=== PATIENT | male | born 1945 | race Caucasian/White ===

== ENCOUNTER 2018-04-16 20:58 | Emergency (ER) | payer OTHER, MEDICARE ==
[~2018-04-16] VITALS: Ht 185.4 cm; Wt 79.4 kg
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
[2018-04-16 21:53] LABS: BASO % 0 % (0-3); EOS # 0.2 x10^3/uL (0.0-0.7); EOS % 3 % (0-3); HEMATOCRIT 36.6 % (39.0-53.0); HEMOGLOBIN 12.6 g/dL (13.0-17.5); LYMPH # 2.6 x10^3/uL (1.0-4.8); LYMPH % 34 % (24-48); MEAN CORPUSCULAR HEMOGLOBIN 33 pg (25-35); MEAN CORPUSCULAR HGB CONC 35 g/dL (31-37); MEAN CORPUSCULAR VOLUME 97 fL (79-100); MONO # 0.6 x10^3/uL (0.0-1.1); MONO % 8 % (0-9); NEUT # 4.1 x10^3uL (1.8-7.7); NEUT % 55 % (31-73); PLATELET COUNT 263 x10^3/uL (140-400); RED BLOOD COUNT 3.78 x10^6/uL (4.30-5.70); RED CELL DISTRIBUTION WIDTH 13.4 % (11.5-14.5); WHITE BLOOD COUNT 7.6 x10^3/uL (4.0-11.0)
--- NOTE | 2018-04-16 21:55 | EKG ---
[address] [address] Test Date: 2018-04-16 Test Time: 21:51:30 Pat Name: ANGELIQUE AVELAR Department: Room: Gender: M Reading Coach: ISA : [id number] Requested By: DANNY GONZALEZ Order Number: [id number] Reading MD: Elliot Escalona MD Measurements Intervals [place] Rate: 67 P: 53 AR: 154 QRS: 5 QRSD: 80 T: 41 QT: 380 QTc: 404 Interpretive Statements SINUS RHYTHM Electronically Signed On 04-20-2018 9:38:30 CDT by Elliot Escalona MD
[2018-04-16] MEDS ORDERED: MVI, ADULT NO.4 WITH VIT K 10 ML, FOLIC ACID SYRINGE for ER 1 MG, THIAMINE 100 MG in IV... IV ONE ×4 (22:00)
[2018-04-16 22:08] LABS: ALBUMIN 3.5 g/dL (3.4-5.0); CALCIUM 8.6 mg/dL (8.5-10.1); CREATININE 0.7 mg/dL (0.7-1.3); DIRECT BILIRUBIN 0.1 mg/dL (0.0-0.2); GFR 111.2; MAGNESIUM 1.9 mg/dL (1.8-2.4); POTASSIUM 3.8 mmol/L (3.5-5.1); TOTAL BILIRUBIN 0.3 mg/dL (0.2-1.0); TOTAL PROTEIN 6.7 g/dL (6.4-8.2)
--- NOTE | 2018-04-16 22:16 | RAD ---
CT Head W/O Contrast: History: fell down stairs Comparison: none Axial images were obtained without contrast. There is moderate diffuse atrophy. There is no mass effect, extraaxial fluid collections or hydrocephalus. There is no focal loss of meier-white matter distinction to suggest acute ischemia, i.e. stroke. Impression: No acute findings. End impression CT C-Spine without contrast: Clinical History: fell down stairs Technique: Axial helical images of the cervical spine were obtained without contrast, axial coronal and sagittal reconstruction was performed. Findings: There is no loss of vertebral body stature. There is no prevertebral soft tissue swelling. The vertebral bodies are well aligned. The C1-C2 relationship is normal. The visualized osseous structures appear normal. Evaluation of the central canal is limited without contrast. There is multiple posterior disc bulges resulting in flattening of the thecal sac. There does not appear to be gross flattening of the cervical cord. There is moderate narrowing of multiple neuroforamen. Impression: No acute findings. Clinical correlation suggested. PQRS Compliance Statement: One or more of the following individualized dose reduction techniques were utilized for this examination: 1. Automated exposure control 2. Adjustment of the mA and/or kV according to patient size 3. Use of iterative reconstruction technique Electronically signed by: Sameer Barron III, MD (04/16/2018 10:13 PM) [facility]
[2018-04-16 22:20] LABS: BARBITURATES NEG (NEG); BENZODIAZEPINES NEG (NEG); CANNABINOIDS POS (NEG); COCAINE NEG (NEG); METHADONE NEG (NEG); OPIATES NEG (NEG); PHENCYCLIDINE NEG (NEG)
[2018-04-16 22:21] LABS: AMPHETAMINE/METHAMPHETAMINE NEG (NEG)
[2018-04-16 22:25] LABS: BILIRUBIN,URINE NEG (NEG); CLARITY,URINE CLEAR; COLOR,URINE STRAW; GLUCOSE,URINE NEG (NEG); NITRITE,URINE NEG (NEG); UROBILINOGEN,URINE 0.2 mg/dL (0.2 mg/dL)
[2018-04-16 22:26] LABS: BACTERIA,URINE 0 /HPF (0-FEW); RBC,URINE OCC /HPF (0-2); SQUAMOUS EPITHELIAL CELL,UR FEW /LPF; WBC,URINE OCC /HPF (0-4)
[2018-04-16 23:15] VITALS: BP 119/80
--- NOTE | 2018-04-17 08:58 | RAD ---
AP chest, 04/16/2018: HISTORY: Fall The heart size and pulmonary vascularity are normal. There is calcific plaquing of the aorta. There is a calcified granuloma in the right upper chest. No acute infiltrate is seen. There is no evidence of pleural fluid or pneumothorax. IMPRESSION: No acute cardiopulmonary abnormality is detected. Right elbow, 04/16/2018: HISTORY: Fall No fracture or dislocation is identified. There is a tiny old nonunited fracture fragment at the tip of the coronoid process. No elbow joint effusion is seen. There is moderate subcutaneous edema posteriorly and laterally. IMPRESSION: No acute bony abnormality is detected. Electronically signed by: Vin Shelton MD (04/17/2018 8:55 AM) [facility]
== END 2018-04-16 23:34 | disposition home or self-care (01) ==
LOC: ER 20:58
DX: F10.129 Alcohol abuse with intoxication, unspecified (principal); S51.011A Laceration without foreign body of right elbow, initial encounter; D64.9 Anemia, unspecified; R26.9 Unspecified abnormalities of gait and mobility; F43.10 Post-traumatic stress disorder, unspecified; F32.9 Major depressive disorder, single episode, unspecified; G47.00 Insomnia, unspecified; F17.210 Nicotine dependence, cigarettes, uncomplicated; F12.10 Cannabis abuse, uncomplicated; F41.9 Anxiety disorder, unspecified; J44.9 Chronic obstructive pulmonary disease, unspecified; Z88.5 Allergy status to narcotic agent; W19.XXXA Unspecified fall, initial encounter; Y93.89 Activity, other specified; Y99.8 Other external cause status; Y92.89 Other specified places as the place of occurrence of the external cause
CPT/HCPCS: 36415; 70450; 71045; 72125; 73080; 80048; 80076; 80307; 81001; 82553; 83690; 83735; 83880; 84443; 84484; 85025; 85379; 85610; 85730; 87040; 93005; 96365; 99285; G0480; J7120; G0479